=== PATIENT | male | born 1980 ===

== ENCOUNTER 2018-09-11 17:19 | Emergency (ER) | payer OTHER ==
[~2018-09-11] VITALS: Ht 162.6 cm; Wt 65.9 kg
[2018-09-11 17:25] VITALS: BP 109/81
== END 2018-09-11 20:12 | disposition left against medical advice (07) ==
LOC: ER 17:20
DX: Z77.21 Contact with and (suspected) exposure to potentially hazardous body fluids (principal); Z53.21 Procedure and treatment not carried out due to patient leaving prior to being seen by health care provider